=== PATIENT | male | born 1965 | race Caucasian/White ===

== ENCOUNTER 2017-04-23 10:03 | Emergency (ER) | payer OTHER ==
[~2017-04-23] VITALS: Ht 177.8 cm; Wt 104.3 kg
[2017-04-23 10:03] VITALS: BP_SYST 148
[2017-04-23 10:45] VITALS: BP_SYST 146
== END 2017-04-23 10:45 | disposition home or self-care (01) ==
LOC: SED 10:03
DX: J06.9 Acute upper respiratory infection, unspecified (principal); I10 Essential (primary) hypertension; E78.00 Pure hypercholesterolemia, unspecified
CPT/HCPCS: 99281

== ENCOUNTER 2017-04-29 16:22 | Emergency (ER) | payer OTHER ==
[~2017-04-29] VITALS: Ht 177.8 cm; Wt 106.6 kg
[2017-04-29 16:22] VITALS: BP 145/94; PULSE 133; RESP 24; TEMP 95.5; O2SAT 99
[2017-04-29] MEDS ORDERED: IPRATROPIUM/ALBUTEROL SULFATE 3 ML AMPUL.NEB INH ONE ×2 (16:30→17:00)
[2017-04-29] MEDS ORDERED: methylPREDNISolone SOD SUCC/PF 62.5 MG/ML VIAL IM ONE (16:30)
[2017-04-29] MEDS ORDERED: NACL 0.9% 1,000 ML IV ONE (16:30)
[2017-04-29] MEDS ORDERED: AZITHROMYCIN 250 MG TABLET PO ONE (17:00)
[2017-04-29 18:28] VITALS: BP 140/90; PULSE 120; RESP 24; TEMP 96.7; O2SAT 99
== END 2017-04-29 18:28 | disposition home or self-care (01) ==
LOC: SED 16:22
DX: J45.909 Unspecified asthma, uncomplicated (principal); B96.89 Other specified bacterial agents as the cause of diseases classified elsewhere; I10 Essential (primary) hypertension; E78.00 Pure hypercholesterolemia, unspecified; Z88.1 Allergy status to other antibiotic agents
CPT/HCPCS: 71010; 93005; 94640; 96360; 96372; 99284; J2930; J7030; Q0144

== ENCOUNTER 2017-06-07 21:44 | Inpatient (IN) | payer OTHER ==
[~2017-06-07] VITALS: Ht 177.8 cm; Wt 113.9 kg
[2017-06-07 21:46] VITALS: BP_SYST 155
[2017-06-07] MEDS ORDERED: ALBUTEROL SULFATE 0.083% 2.5 MG/3 ML VIAL.NEB INH ONE (22:00)
[2017-06-07 22:41] LABS: BASOPHILS # (AUTO) 0.2 K/uL (0.0-0.2); BASOPHILS % (AUTO) 1.8 % (0.0-2.0); EOSINOPHILS % (AUTO) 0.1 % (0.0-4.0); HEMATOCRIT 43.3 % (36-54); HEMOGLOBIN 14.4 g/dL (14.0-18.0); LYMPHOCYTES # (AUTO) 1.8 K/uL (1.0-5.5); LYMPHOCYTES % (AUTO) 18.3 % (20.5-51.5); MEAN CORPUSCULAR HEMOGLOBIN 29 pg (27-31); MEAN CORPUSCULAR HGB CONC 33 % (32-36); MEAN CORPUSCULAR VOLUME 89 fL (79.0-98.0); MONOCYTES # (AUTO) 0.8 K/uL (0.0-1.0); MONOCYTES % (AUTO) 8.3 % (1.7-9.3); NEUTROPHILS # (AUTO) 7.3 K/uL (1.8-7.7); NEUTROPHILS % (AUTO) 71.5 % (40.0-70.0); PLATELET COUNT (AUTO) 258 K/uL (130-430); RED BLOOD CELL COUNT(AUTO) 4.89 MIL/uL (4.2-6.2); RED CELL DISTRIBUTION WIDTH 13.5 % (9.0-15.0); WHITE BLOOD COUNT (AUTO) 10.1 K/uL (4.8-10.8)
[2017-06-07 22:44] LABS: CALCIUM 8.9 mg/dL (8.4-11.0); CREATININE 1.15 mg/dL (0.55-1.30); POTASSIUM 4.3 mmol/L (3.5-5.1)
[2017-06-07] MEDS ORDERED: NACL 0.9% 1,000 ML IV ONE (22:45)
[2017-06-07 22:55] LABS: ALBUMIN 3.8 g/dL (3.4-4.8); TOTAL BILIRUBIN 0.5 mg/dL (0.0-1.0)
[2017-06-07] MEDS ORDERED: IOHEXOL 350 mgI/mL, 150 ML INFUS..BTL IV ONE (22:58)
[2017-06-07] MEDS ORDERED: BENA1TAB72 PO (23:09)
[2017-06-07] MEDS ORDERED: EZET10TA PO (23:09)
[2017-06-07] MEDS ORDERED: LIP40 PO (23:09)
[2017-06-07] MEDS ORDERED: INSULIN REGULAR, HUMAN 10 UNITS/0.1 ML INJ IVP ONE (23:15)
[2017-06-07 23:34] LABS: INR 0.9 (0.80-1.20); PROTHROMBIN TIME 9.6 SECS (9.5-12.5)
[2017-06-07 23:51] LABS: BILIRUBIN,URINE NEGATIVE (NEGATIVE); CLARITY/URINE CLEAR (CLEAR); COLOR,URINE YELLOW (YELLOW); GLUCOSE,URINE 3+ (NEGATIVE); KETONES,URINE TRACE (NEGATIVE); LEUKOCYTE ESTERASE ,URINE NEGATIVE (NEGATIVE); NITRITE, URINE NEGATIVE (NEGATIVE); PROTEIN URINE NEGATIVE (NEGATIVE); UROBILINOGEN,URINE 0.2 (0.2-1.0)
[2017-06-07 23:52] LABS: BLOOD, URINE TRACE (NEGATIVE)
[2017-06-07 23:56] LABS: BACTERIA,URINE RARE /HPF (None Seen); MUCUS,URINE None Seen /LPF (None Seen); RBC,URINE 0-3 /HPF (0-3); WBC,URINE 0-3 /HPF (0-3)
[2017-06-08] VITALS (8 sets, daily range): BP systolic 98–152
[2017-06-08] MEDS ORDERED: NACL 0.9% 1,000 ML IV ONE
[2017-06-08] MEDS ORDERED: VANCOMYCIN HCL 1,000 MG in NS 250 ML IV ONE (00:15)
[2017-06-08] MEDS ORDERED: VANCOMYCIN HCL 1000 MG/VIAL IV ONE (00:24)
[2017-06-08] MEDS ORDERED: ALBUTEROL SULFATE 0.083% 2.5 MG/3 ML VIAL.NEB INH PRN ×2 (00:45→01:00)
[2017-06-08] MEDS ORDERED: INSULIN REGULAR, HUMAN 100 UNITS/ML, 10 ML VIAL (novoLIN R) SUBCUT PRN (00:45)
[2017-06-08] MEDS ORDERED: IPRATROPIUM BROM 0.5 MG/2.5 ML VIAL.NEB (ATROVENT) INH PRN ×2 (00:45→01:00)
[2017-06-08] MEDS ORDERED: cefTRIAXone 1 GM IVPB PREMIX 50 ML IV SCH (00:45)
[2017-06-08] MEDS ORDERED: PRED20TA PO (01:07)
[2017-06-08] MEDS ORDERED: cefTRIAXone 1 GM IVPB PREMIX 50 ML IV ONE (01:37)
[2017-06-08] MEDS: amLODIPine BESYLATE 10 MG TABLET PO SCH ×2 (02:00→08:42)
[2017-06-08] MEDS ORDERED: AZITHROMYCIN 500 MG in NS 250 ML IV ONE (02:00)
[2017-06-08] MEDS: cefTRIAXone 1 GM IVPB PREMIX 50 ML IV SCH (02:51)
[2017-06-08] MEDS ORDERED: amLODIPine BESYLATE 10 MG TABLET PO ONE (03:00)
[2017-06-08] MEDS ORDERED: AZITHROMYCIN 500 MG/VIAL (ZITHROMAX) IV ONE (03:27)
[2017-06-08] MEDS ORDERED: IPRATROPIUM BROM 0.5 MG/2.5 ML VIAL.NEB (ATROVENT) INH SCH (06:00)
[2017-06-08] MEDS ORDERED: ALBUTEROL SULFATE 0.083% 2.5 MG/3 ML VIAL.NEB INH SCH (06:00)
[2017-06-08] MEDS: IPRATROPIUM BROM 0.5 MG/2.5 ML VIAL.NEB (ATROVENT) INH SCH ×3 (07:08→20:12)
[2017-06-08] MEDS: ALBUTEROL SULFATE 0.083% 2.5 MG/3 ML VIAL.NEB INH SCH ×3 (07:08→20:13)
[2017-06-08] MEDS: ATORVASTATIN 20 MG TABLET PO SCH (08:42)
[2017-06-08] MEDS: EZETIMIBE 10 MG TABLET PO SCH (08:43)
[2017-06-08] MEDS ORDERED: EZETIMIBE 10 MG TABLET PO SCH (09:00)
[2017-06-08] MEDS ORDERED: ATORVASTATIN 20 MG TABLET PO SCH (09:00)
[2017-06-08] MEDS ORDERED: FLUTICASONE/VILANTEROL 1 EACH BLST.W.DEV INH ONE (10:00)
[2017-06-08] MEDS ORDERED: BUDESONIDE 0.5 MG/2 ML AMPUL.NEB INH ONE (10:00)
[2017-06-08] MEDS ORDERED: PROMETHAZINE 6.25 MG/ CODEINE 10 MG/ 5 ML PO PRN (10:15)
[2017-06-08] MEDS: INSULIN REGULAR, HUMAN 100 UNITS/ML, 10 ML VIAL (novoLIN R) SUBCUT PRN ×2 (12:15→21:14)
[2017-06-08] MEDS: FLUCONAZOLE 200 mg/ NS 100 ML IV SCH (13:35)
[2017-06-08] MEDS: BUDESONIDE 0.5 MG/2 ML AMPUL.NEB INH SCH (20:12)
[2017-06-08] MEDS ORDERED: AZITHROMYCIN 250 MG in NS 250 ML IV SCH (21:00)
[2017-06-09] MEDS: ALBUTEROL SULFATE 0.083% 2.5 MG/3 ML VIAL.NEB INH SCH ×3 (00:46→12:00)
[2017-06-09] MEDS: IPRATROPIUM BROM 0.5 MG/2.5 ML VIAL.NEB (ATROVENT) INH SCH ×3 (00:46→12:00)
[2017-06-09] MEDS: cefTRIAXone 1 GM IVPB PREMIX 50 ML IV SCH (01:26)
[2017-06-09 01:53] VITALS: BP_SYST 112
[2017-06-09 06:05] VITALS: BP_SYST 108
[2017-06-09] MEDS: BUDESONIDE 0.5 MG/2 ML AMPUL.NEB INH SCH (07:02)
[2017-06-09 07:04] LABS: CALCIUM 8.5 mg/dL (8.4-11.0); CREATININE 0.88 mg/dL (0.55-1.30); POTASSIUM 4.2 mmol/L (3.5-5.1)
[2017-06-09 07:22] LABS: BASOPHILS % (AUTO) 0.4 % (0.0-2.0); EOSINOPHILS # (AUTO) 0.1 K/uL (0.0-0.4); EOSINOPHILS % (AUTO) 1.4 % (0.0-4.0); HEMATOCRIT 37.5 % (36-54); HEMOGLOBIN 12.7 g/dL (14.0-18.0); LYMPHOCYTES # (AUTO) 1.8 K/uL (1.0-5.5); LYMPHOCYTES % (AUTO) 24.1 % (20.5-51.5); MEAN CORPUSCULAR HEMOGLOBIN 31 pg (27-31); MEAN CORPUSCULAR HGB CONC 34 % (32-36); MEAN CORPUSCULAR VOLUME 91 fL (79.0-98.0); MONOCYTES # (AUTO) 0.5 K/uL (0.0-1.0); MONOCYTES % (AUTO) 6.4 % (1.7-9.3); NEUTROPHILS # (AUTO) 5.1 K/uL (1.8-7.7); NEUTROPHILS % (AUTO) 67.7 % (40.0-70.0); PLATELET COUNT (AUTO) 208 K/uL (130-430); RED BLOOD CELL COUNT(AUTO) 4.14 MIL/uL (4.2-6.2); RED CELL DISTRIBUTION WIDTH 13.7 % (9.0-15.0); WHITE BLOOD COUNT (AUTO) 7.5 K/uL (4.8-10.8)
[2017-06-09 08:10] VITALS: BP_SYST 140
[2017-06-09] MEDS: amLODIPine BESYLATE 10 MG TABLET PO SCH (08:25)
[2017-06-09] MEDS: EZETIMIBE 10 MG TABLET PO SCH (08:25)
[2017-06-09] MEDS: ATORVASTATIN 20 MG TABLET PO SCH (08:26)
[2017-06-09] MEDS ORDERED: FLUTICASONE/VILANTEROL 1 EACH BLST.W.DEV INH SCH (09:00)
[2017-06-09] MEDS: INSULIN REGULAR, HUMAN 100 UNITS/ML, 10 ML VIAL (novoLIN R) SUBCUT PRN (11:47)
[2017-06-09] MEDS ORDERED: NOR10 PO (12:54)
[2017-06-09] MEDS ORDERED: BRIO (12:56)
[2017-06-09 13:00] VITALS: BP_SYST 136
[2017-06-09] MEDS: FLUCONAZOLE 200 mg/ NS 100 ML IV SCH (13:00)
[2017-06-09 13:31] VITALS: BP_SYST 146
[2017-06-09] MEDS ORDERED: AZIT250T PO (13:50)
[2017-06-09] MEDS ORDERED: PHEDM120 PO (13:51)
[2017-06-09] MEDS ORDERED: FLUT1BLS3 INH (13:51)
[2017-06-09 16:25] VITALS: BP_SYST 138
[2017-06-11 22:18] LABS: MYCOPLASMA PNEUMONIAE IgM <770 U/mL (0-769)
== END 2017-06-09 14:20 | disposition home or self-care (01) | DRG 202 ==
LOC: SED 21:44 → STU 06-08 00:39 → SED 06-08 00:46 → STU 06-08 01:06
PROVIDERS: ADMIT Family Medicine; ATTEND Family Medicine
DX: J45.901 Unspecified asthma with (acute) exacerbation (principal); E87.1 Hypo-osmolality and hyponatremia; E78.5 Hyperlipidemia, unspecified; R76.11 Nonspecific reaction to tuberculin skin test without active tuberculosis; R73.9 Hyperglycemia, unspecified; E66.9 Obesity, unspecified; J42 Unspecified chronic bronchitis; I10 Essential (primary) hypertension; Z86.711 Personal history of pulmonary embolism; Z92.21 Personal history of antineoplastic chemotherapy; Z85.6 Personal history of leukemia; Z82.49 Family history of ischemic heart disease and other diseases of the circulatory system; Z68.36 Body mass index [BMI] 36.0-36.9, adult; Z88.1 Allergy status to other antibiotic agents
CPT/HCPCS: 36415; 71020-TC; 71275; 80048; 80053; 81000-TC; 82785; 82962; 83036; 83605; 83880; 84443-TC; 84484; 85025; 85379; 85384-TC; 85610-TC; 85730-TC; 86480; 86635; 86738; 87040-TC; 87305; 93005; 94640; 94760; 96361; 96365; 96366; 96375; 99285; J0456; J0696; J1450; J1815; J3370; J7050; Q9967

== ENCOUNTER 2017-08-22 15:03 | Emergency (ER) | payer OTHER ==
[~2017-08-22] VITALS: Ht 177.8 cm; Wt 108.9 kg
[~2017-08-22 15:03] MED LIST: AZIT250T PO; EZET10TA PO; FLUT1BLS3 INH; LIP40 PO; NOR10 PO; PHEDM120 PO
[2017-08-22 15:10] VITALS: BP_SYST 157
[2017-08-22 15:37] LABS: BASOPHILS % (AUTO) 0.5 % (0.0-2.0); EOSINOPHILS # (AUTO) 0.1 K/uL (0.0-0.4); EOSINOPHILS % (AUTO) 1.1 % (0.0-4.0); HEMATOCRIT 44.9 % (36-54); HEMOGLOBIN 14.8 g/dL (14.0-18.0); LYMPHOCYTES # (AUTO) 1.3 K/uL (1.0-5.5); LYMPHOCYTES % (AUTO) 17.5 % (20.5-51.5); MEAN CORPUSCULAR HEMOGLOBIN 29 pg (27-31); MEAN CORPUSCULAR HGB CONC 33 % (32-36); MEAN CORPUSCULAR VOLUME 88 fL (79.0-98.0); MONOCYTES # (AUTO) 0.3 K/uL (0.0-1.0); MONOCYTES % (AUTO) 4.2 % (1.7-9.3); NEUTROPHILS # (AUTO) 5.8 K/uL (1.8-7.7); NEUTROPHILS % (AUTO) 76.7 % (40.0-70.0); PLATELET COUNT (AUTO) 265 K/uL (130-430); RED BLOOD CELL COUNT(AUTO) 5.09 MIL/uL (4.2-6.2); RED CELL DISTRIBUTION WIDTH 13.3 % (9.0-15.0); WHITE BLOOD COUNT (AUTO) 7.5 K/uL (4.8-10.8)
[2017-08-22 15:46] LABS: ANION GAP 6 (5-15); CALCIUM 9.1 mg/dL (8.4-11.0); CHLORIDE 99 mmol/L (98-107); CREATININE 0.89 mg/dL (0.55-1.30); GLUCOSE 255 mg/dL (70-99); POTASSIUM 3.8 mmol/L (3.5-5.1); SODIUM SERUM 135 mmol/L (136-145); UREA NITROGEN, BLOOD 17 mg/dL (8-21)
[2017-08-22 15:52] LABS: GFR AFRICAN AMERICAN 115 mL/min (>90)
[2017-08-22 15:55] LABS: ALANINE AMINOTRANSFERASE 80 U/L (12-78); ALBUMIN 3.7 g/dL (3.4-4.8); ASPARTATE AMINOTRANSFERASE 50 U/L (10-37); TOTAL BILIRUBIN 0.5 mg/dL (0.0-1.0)
[2017-08-22 16:27] LABS: BILIRUBIN,URINE NEGATIVE (NEGATIVE); BLOOD, URINE 1+ (NEGATIVE); CLARITY/URINE CLEAR (CLEAR); COLOR,URINE YELLOW (YELLOW); GLUCOSE,URINE 2+ (NEGATIVE); KETONES,URINE TRACE (NEGATIVE); LEUKOCYTE ESTERASE ,URINE NEGATIVE (NEGATIVE); NITRITE, URINE NEGATIVE (NEGATIVE); PROTEIN URINE TRACE (NEGATIVE); UROBILINOGEN,URINE 0.2 (0.2-1.0)
[2017-08-22] MEDS ORDERED: IOHEXOL 350 mgI/mL, 150 ML INFUS..BTL IV ONE (16:29)
[2017-08-22] MEDS ORDERED: NACL 0.9% 1,000 ML IV ONE (16:30)
[2017-08-22] MEDS ORDERED: INSULIN REGULAR, HUMAN 10 UNITS/0.1 ML INJ IVP ONE (16:30)
[2017-08-22 16:44] LABS: BACTERIA,URINE FEW /HPF (None Seen); WBC,URINE 0-3 /HPF (0-3)
[2017-08-22 16:45] LABS: FINE GRANULAR CASTS,URINE 0-10 /LPF (None Seen)
[2017-08-22] MEDS ORDERED: KETOROLAC TROMETHAMINE 30 MG VIAL IVP ONE (17:45)
[2017-08-22 17:50] VITALS: BP_SYST 145
== END 2017-08-22 17:55 | disposition left against medical advice (07) ==
LOC: SED 15:03
DX: S22.31XA Fracture of one rib, right side, initial encounter for closed fracture (principal); J45.909 Unspecified asthma, uncomplicated; I10 Essential (primary) hypertension; R73.9 Hyperglycemia, unspecified; E78.00 Pure hypercholesterolemia, unspecified; Z90.49 Acquired absence of other specified parts of digestive tract; Z85.6 Personal history of leukemia; Z88.1 Allergy status to other antibiotic agents; X58.XXXA Exposure to other specified factors, initial encounter; Y93.89 Activity, other specified; Y92.89 Other specified places as the place of occurrence of the external cause; Y99.8 Other external cause status
CPT/HCPCS: 36415; 71045; 71275; 80053; 81000; 83605; 84484; 85025; 85379; 93005; 96361; 96374; 96375; 99285; J1885; J7030; Q9967; J1815

== ENCOUNTER 2018-03-11 16:04 | Inpatient (IN) | payer OTHER ==
[~2018-03-11] VITALS: Ht 177.8 cm; Wt 100.7 kg
[2018-03-11 16:05] VITALS: BP_SYST 133
[2018-03-11 16:45] LABS: BASOPHILS # (AUTO) 0.1 K/uL (0.0-0.2); BASOPHILS % (AUTO) 0.8 % (0.0-2.0); EOSINOPHILS % (AUTO) 0.4 % (0.0-4.0); HEMATOCRIT 45.5 % (36-54); HEMOGLOBIN 15.7 g/dL (14.0-18.0); LYMPHOCYTES # (AUTO) 1.4 K/uL (1.0-5.5); LYMPHOCYTES % (AUTO) 16.5 % (20.5-51.5); MEAN CORPUSCULAR HEMOGLOBIN 30 pg (27-31); MEAN CORPUSCULAR HGB CONC 34 % (32-36); MEAN CORPUSCULAR VOLUME 87 fL (79.0-98.0); MONOCYTES # (AUTO) 0.3 K/uL (0.0-1.0); MONOCYTES % (AUTO) 3.6 % (1.7-9.3); NEUTROPHILS # (AUTO) 6.8 K/uL (1.8-7.7); NEUTROPHILS % (AUTO) 78.7 % (40.0-70.0); PLATELET COUNT (AUTO) 226 K/uL (130-430); RED BLOOD CELL COUNT(AUTO) 5.21 MIL/uL (4.2-6.2); RED CELL DISTRIBUTION WIDTH 12.3 % (9.0-15.0); WHITE BLOOD COUNT (AUTO) 8.6 K/uL (4.8-10.8)
[2018-03-11 16:55] LABS: CALCIUM 9.8 mg/dL (8.4-11.0); CREATININE 0.91 mg/dL (0.55-1.30)
[2018-03-11 16:59] LABS: PROTHROMBIN TIME 9.8 SECS (9.5-12.5)
[2018-03-11 17:00] LABS: ALBUMIN 3.9 g/dL (3.4-4.8); TOTAL BILIRUBIN 0.8 mg/dL (0.0-1.0)
[2018-03-11] MEDS ORDERED: NACL 0.9% 1,000 ML IV ONE (17:15)
[2018-03-11] MEDS ORDERED: INSULIN REGULAR, HUMAN 10 UNITS/0.1 ML INJ IVP ONE (17:15)
[2018-03-11] MEDS ORDERED: CLINDAMYCIN 600 mg/50mL D5W 50 ML IV ONE (17:15)
[2018-03-11 17:20] LABS: C-REACTIVE PROTEIN QUANT 4.4 mg/dL (0-0.5)
[2018-03-11] MEDS ORDERED: HYDROcodone/ACETAMIN 5-325 MG TAB (NORCO/ VICODIN) PO PRN (17:30)
[2018-03-11] MEDS ORDERED: HYDR25TA4 PO (17:42)
[2018-03-11] MEDS ORDERED: MONT10TA25 PO (17:42)
[2018-03-11] MEDS ORDERED: DEXTROSE 50%-WATER 50 ML DISP.SYRIN IVP PRN ×2 (18:15)
[2018-03-11] MEDS ORDERED: GLUCOSE 15 GM GEL (in 37.5 GM TUBE) PO PRN ×2 (18:15)
[2018-03-11 18:42] VITALS: BP_SYST 129
[2018-03-11] MEDS: VANCOMYCIN HCL 1,500 MG in NS 250 ML IV SCH (20:15)
[2018-03-11] MEDS: INSULIN ASPART 100 UNITS/ML, 10 ML VIAL (NovoLOG) SUBCUT PRN (20:21)
[2018-03-11 21:11] VITALS: BP_SYST 133
[2018-03-12 00:45] VITALS: BP_SYST 130
[2018-03-12] MEDS: VANCOMYCIN HCL 1,500 MG in NS 250 ML IV SCH ×3 (05:25→21:32)
[2018-03-12] MEDS: INSULIN ASPART 100 UNITS/ML, 10 ML VIAL (NovoLOG) SUBCUT PRN ×4 (06:12→21:39)
[2018-03-12 08:00] VITALS: BP_SYST 117
[2018-03-12 11:29] VITALS: BP_SYST 131
[2018-03-12] MEDS ORDERED: metFORMIN HCL 500 MG TABLET PO ONE (11:45)
[2018-03-12] MEDS ORDERED: amLODIPine BESYLATE 10 MG TABLET PO ONE (11:45)
[2018-03-12] MEDS ORDERED: HYDROCHLOROTHIAZIDE 25 MG TABLET (HCTZ) PO ONE (11:45)
[2018-03-12] MEDS ORDERED: ATORVASTATIN 20 MG TABLET PO ONE (11:45)
[2018-03-12] MEDS ORDERED: EZETIMIBE 10 MG TABLET PO ONE (11:45)
[2018-03-12] MEDS ORDERED: CLINDAMYCIN 600 MG in D5W 50 ML IV ONE (13:30)
[2018-03-12] MEDS ORDERED: FLUCONAZOLE 200 MG TABLET (DIFLUCAN) PO ONE (14:00)
[2018-03-12 15:58] VITALS: BP_SYST 133
[2018-03-12] MEDS ORDERED: POTASSIUM CHLORIDE 20 MEQ TAB.PRT.SR PO ONE (16:30)
[2018-03-12] MEDS: MONTELUKAST 10 MG TABLET PO SCH (17:58)
[2018-03-12] MEDS: metFORMIN HCL 500 MG TABLET PO SCH (18:00)
[2018-03-12] MEDS: CLINDAMYCIN 600 MG in D5W 50 ML IV SCH ×2 (18:53→23:52)
[2018-03-12 20:15] VITALS: BP_SYST 131
[2018-03-12] MEDS ORDERED: VANCOMYCIN HCL 1000 MG/VIAL IV ONE (20:33)
[2018-03-12] MEDS ORDERED: VANCOMYCIN HCL 500 MG/VIAL IV ONE (20:33)
[2018-03-13 00:04] VITALS: BP_SYST 120
[2018-03-13] MEDS: CLINDAMYCIN 600 MG in D5W 50 ML IV SCH ×3 (05:25→17:08)
[2018-03-13] MEDS: VANCOMYCIN HCL 1,500 MG in NS 250 ML IV SCH ×3 (06:27→21:50)
[2018-03-13] MEDS: INSULIN ASPART 100 UNITS/ML, 10 ML VIAL (NovoLOG) SUBCUT PRN ×4 (06:30→21:53)
[2018-03-13 07:12] LABS: CALCIUM 8.9 mg/dL (8.4-11.0); CREATININE 0.65 mg/dL (0.55-1.30)
[2018-03-13 08:00] VITALS: BP_SYST 128
[2018-03-13] MEDS: FLUCONAZOLE 200 MG TABLET (DIFLUCAN) PO SCH (08:13)
[2018-03-13] MEDS: amLODIPine BESYLATE 10 MG TABLET PO SCH (08:14)
[2018-03-13] MEDS: metFORMIN HCL 500 MG TABLET PO SCH ×2 (08:14→17:09)
[2018-03-13] MEDS: EZETIMIBE 10 MG TABLET PO SCH (08:15)
[2018-03-13] MEDS: HYDROCHLOROTHIAZIDE 25 MG TABLET (HCTZ) PO SCH (08:15)
[2018-03-13] MEDS: ATORVASTATIN 20 MG TABLET PO SCH (08:16)
[2018-03-13] MEDS ORDERED: DIATR MEGLU/DIATRIZ SOD 30 ML SOLUTION PO ONE (11:00)
[2018-03-13] MEDS ORDERED: IOHEXOL 100 ML IV ONE (12:45)
[2018-03-13 16:51] LABS: BASOPHILS % (AUTO) 0.3 % (0.0-2.0); EOSINOPHILS # (AUTO) 0.1 K/uL (0.0-0.4); EOSINOPHILS % (AUTO) 1.7 % (0.0-4.0); HEMATOCRIT 39.5 % (36-54); HEMOGLOBIN 13.6 g/dL (14.0-18.0); LYMPHOCYTES # (AUTO) 2.1 K/uL (1.0-5.5); LYMPHOCYTES % (AUTO) 30.9 % (20.5-51.5); MEAN CORPUSCULAR HEMOGLOBIN 30 pg (27-31); MEAN CORPUSCULAR HGB CONC 34 % (32-36); MEAN CORPUSCULAR VOLUME 87 fL (79.0-98.0); MONOCYTES # (AUTO) 0.5 K/uL (0.0-1.0); MONOCYTES % (AUTO) 8.1 % (1.7-9.3); NEUTROPHILS # (AUTO) 3.9 K/uL (1.8-7.7); PLATELET COUNT (AUTO) 214 K/uL (130-430); RED BLOOD CELL COUNT(AUTO) 4.53 MIL/uL (4.2-6.2); RED CELL DISTRIBUTION WIDTH 12.9 % (9.0-15.0); WHITE BLOOD COUNT (AUTO) 6.6 K/uL (4.8-10.8)
[2018-03-13] MEDS: MONTELUKAST 10 MG TABLET PO SCH (17:08)
[2018-03-13 20:00] VITALS: BP_SYST 141
[2018-03-13 23:18] VITALS: BP_SYST 129
[2018-03-14] MEDS: CLINDAMYCIN 600 MG in D5W 50 ML IV SCH ×3 (00:19→11:13)
[2018-03-14] MEDS: VANCOMYCIN HCL 1,500 MG in NS 250 ML IV SCH ×2 (06:24→12:36)
[2018-03-14] MEDS: INSULIN ASPART 100 UNITS/ML, 10 ML VIAL (NovoLOG) SUBCUT PRN ×2 (06:28→11:11)
[2018-03-14 08:00] VITALS: BP_SYST 127
[2018-03-14] MEDS: metFORMIN HCL 500 MG TABLET PO SCH (08:00)
[2018-03-14] MEDS: amLODIPine BESYLATE 10 MG TABLET PO SCH (09:01)
[2018-03-14] MEDS: FLUCONAZOLE 200 MG TABLET (DIFLUCAN) PO SCH (09:01)
[2018-03-14] MEDS: EZETIMIBE 10 MG TABLET PO SCH (09:01)
[2018-03-14] MEDS: ATORVASTATIN 20 MG TABLET PO SCH (09:01)
[2018-03-14] MEDS: HYDROCHLOROTHIAZIDE 25 MG TABLET (HCTZ) PO SCH (09:08)
[2018-03-14 11:27] VITALS: BP_SYST 125
[2018-03-14] MEDS ORDERED: POTASSIUM CHLORIDE 20 MEQ TAB.PRT.SR PO ONE (12:00)
[2018-03-14] MEDS ORDERED: POTASSIUM CHLORIDE 20 MEQ TAB.PRT.SR ONE (12:29)
[2018-03-14] MEDS ORDERED: glipiZIDE XL 5 MG TAB ( GLUCOTROL XL) PO ONE (12:45)
[2018-03-14 13:14] VITALS: BP_SYST 127
[2018-03-14] MEDS ORDERED: CLIN300C11 PO (13:19)
[2018-03-14] MEDS ORDERED: DOXY100C2 PO (13:20)
[2018-03-14] MEDS ORDERED: SITA100T11 PO (13:20)
[2018-03-14] MEDS ORDERED: METF1000 PO (13:21)
[2018-03-14 15:28] VITALS: BP_SYST 130
[2018-03-15] MEDS ORDERED: glipiZIDE XL 5 MG TAB ( GLUCOTROL XL) PO SCH (09:00)
== END 2018-03-14 15:30 | disposition home or self-care (01) | DRG 603 ==
LOC: SED 16:04 → SMU 17:26
PROVIDERS: ADMIT Family Medicine; ATTEND Family Medicine
DX: L03.314 Cellulitis of groin (principal); L02.214 Cutaneous abscess of groin; E11.65 Type 2 diabetes mellitus with hyperglycemia; I10 Essential (primary) hypertension; E78.00 Pure hypercholesterolemia, unspecified; J45.909 Unspecified asthma, uncomplicated; E87.6 Hypokalemia; L30.4 Erythema intertrigo; Z85.6 Personal history of leukemia; Z88.1 Allergy status to other antibiotic agents; Z79.899 Other long term (current) drug therapy; Z86.711 Personal history of pulmonary embolism; Z86.11 Personal history of tuberculosis
CPT/HCPCS: 36415; 72195; 80048; 80053; 80202-TC; 82009-TC; 82962; 83036; 83605; 85025; 85610-TC; 85730-TC; 86140; 87040-TC; 87081; 96365; 96375; 99285; J1815; J3370; J3490; J7050; J7060; Q9964; Q9967